=== PATIENT | female | born 1945 | race Two or more races ===

== ENCOUNTER 2019-09-10 21:16 | Inpatient (IN) | payer MEDICARE, OTHER ==
[~2019-09-10] VITALS: Ht 154.9 cm; Wt 70.1 kg
[~2019-09-10 21:16] MED LIST: AMLO10TA7 PO; ASPI-728 PO; CLON0.1T83 PO; FERR-89 PO; FURO40 PO; OMEP20 PO; PHOSLOC PO; SODI650T PO
[2019-09-10 21:42] LABS: GLUCOSE,POINT OF CARE 102 MG/DL (70-110)
[2019-09-10 22:04] LABS: BASOPHILS % (AUTO) 0.5 % (0.0-2.0); EOSINOPHILS % (AUTO) 0.4 % (1.0-6.0); HEMATOCRIT 30.7 % (36-46); HEMOGLOBIN 10.5 g/dL (12.0-16.0); LYMPHOCYTES # (AUTO) 1.1 K/uL (1.0-4.8); LYMPHOCYTES % (AUTO) 10.3 % (22.0-44.0); MEAN CORPUSCULAR HEMOGLOBIN 31.3 pg (26.0-34.0); MEAN CORPUSCULAR HGB CONC 34.2 G/dL (31.0-37.0); MEAN CORPUSCULAR VOLUME 92 fL (80-100); MONOCYTES # (AUTO) 0.7 K/uL (0.1-1.0); MONOCYTES % (AUTO) 6.8 % (2.0-9.0); NEUTROPHILS # (AUTO) 8.6 K/uL (1.8-7.7); PLATELET COUNT (AUTO) 129 K/uL (150-450); RED BLOOD CELL COUNT(AUTO) 3.35 MIL/uL (4.00-5.20); RED CELL DISTRIBUTION WIDTH 14.2 % (11.5-14.5)
[2019-09-10 22:15] LABS: INR 1.1 (0.9-1.1); PROTHROMBIN TIME 10.7 SEC (9.4-11.6)
[2019-09-10] MEDS ORDERED: SODIUM CHLORIDE 0.9% 500 ML IV ONE (22:15)
[2019-09-10 22:19] LABS: CALCIUM, TOTAL 8.7 mg/dL (8.8-10.5); CREATININE 8.34 mg/dL (0.60-1.30); POTASSIUM 5.3 mmol/L (3.5-5.1)
[2019-09-10 22:26] LABS: ALBUMIN 3.2 g/dL (3.4-5.0); BILIRUBIN,TOTAL 0.9 mg/dL (0.1-1.0); TOTAL PROTEIN, SERUM 6.8 g/dL (6.4-8.2)
[2019-09-10] MEDS ORDERED: PIPERACILLIN SODIUM/TAZOBACTAM 2.25 GM in DEXTROSE 5%-WATER 50 ML IV ONE (23:00)
[2019-09-10] MEDS ORDERED: ACETAMINOPHEN 500 MG TABLET ONE (23:12)
[2019-09-10] MEDS ORDERED: CALCIUM GLUCONATE 0.465 MEQ/ML 10 ML VIAL IVP ONE (23:15)
[2019-09-10] MEDS ORDERED: ACETAMINOPHEN 500 MG TABLET PO ONE (23:15)
[2019-09-10] MEDS ORDERED: INSULIN REGULAR, HUMAN 100 UNITS/ML IVP ONE (23:15)
[2019-09-10] MEDS ORDERED: SODIUM BICARBONATE [ADULT] 8.4% 50 MEQ/50 ML SYRINGE IVP ONE (23:15)
[2019-09-10] MEDS ORDERED: DEXTROSE 50%-WATER 25 GM/50 ML SYRINGE IVP ONE (23:15)
[2019-09-10 23:30] LABS: INFLUENZA TYPE A NEGATIVE FOR TYPE A (NEGATIVE); INFLUENZA TYPE B NEGATIVE FOR TYPE B (NEGATIVE)
[2019-09-10] MEDS ORDERED: VANCOMYCIN HCL 1.5 GM in DEXTROSE 5%-WATER 250 ML IV ONE (23:30)
[2019-09-11] MEDS ORDERED: ALBUTEROL SULFATE 2.5 MG/0.5 ML NEB SOLUTION NEB PRN (00:15)
[2019-09-11] MEDS ORDERED: 0.9% SODIUM CHLORIDE 10 ML SYRINGE IVP PRN ×2 (00:15→01:00)
[2019-09-11] MEDS ORDERED: ZOLPIDEM TARTRATE 5 MG TABLET PO PRN (00:15)
[2019-09-11] MEDS ORDERED: ONDANSETRON HCL 4 MG/2 ML VIAL IVP PRN ×2 (00:15→01:00)
[2019-09-11] MEDS ORDERED: DEXTROSE 50%-WATER 25 GM/50 ML SYRINGE IVP PRN (00:15)
[2019-09-11] MEDS ORDERED: IPRATROPIUM BROMIDE 0.5 MG/2.5 ML NEB SOLUTION NEB PRN (00:15)
[2019-09-11] MEDS ORDERED: ACETAMINOPHEN 325 MG TABLET PO PRN (01:00)
[2019-09-11] MEDS ORDERED: PIPERACILLIN SODIUM/TAZOBACTAM 0.75 GM in DEXTROSE 5%-WATER 50 ML IV PRN (03:15)
[2019-09-11] MEDS ORDERED: VANCOMYCIN HCL 1 GM/D5% WATER 200 ML IV PRN (03:15)
[2019-09-11] MEDS ORDERED: 0.9% SODIUM CHLORIDE 5 ML NEB SOLUTION NEB ONE (03:36)
[2019-09-11] MEDS: ALBUTEROL SULFATE 2.5 MG/0.5 ML NEB SOLUTION NEB SCH ×4 (03:50→19:48)
[2019-09-11] MEDS: IPRATROPIUM BROMIDE 0.5 MG/2.5 ML NEB SOLUTION NEB SCH ×4 (03:50→19:47)
[2019-09-11 05:12] VITALS: BP 138/55
[2019-09-11] MEDS: INSULIN LISPRO 100 UNITS/ML SQ PRN ×2 (07:19→21:52)
[2019-09-11 07:26] VITALS: BP 159/88
[2019-09-11 07:40] LABS: GLUCOMETER DEV NAME(LOC) 5S.1; GLUCOSE,POINT OF CARE 89 MG/DL (70-110)
[2019-09-11] MEDS ORDERED: FERROUS SULFATE 325 MG EC TABLET PO SCH (08:00)
[2019-09-11] MEDS: CloNIDine HCL 0.1 MG TABLET PO SCH ×3 (09:00→21:38)
[2019-09-11] MEDS ORDERED: -POST HEMODIALYSIS NOTE- MISC SCH (09:00)
[2019-09-11] MEDS: AmLODIPine BESYLATE 10 MG TABLET PO SCH (09:00)
[2019-09-11] MEDS: PIPERACILLIN SODIUM/TAZOBACTAM 2.25 GM in DEXTROSE 5%-WATER 50 ML IV SCH ×4 (09:26→22:28)
[2019-09-11] MEDS: CALCIUM ACETATE 667 MG CAPSULE PO SCH ×3 (09:27→17:20)
[2019-09-11] MEDS: ASPIRIN 81 MG CHEWABLE TABLET PO SCH (09:28)
[2019-09-11] MEDS: PANTOPRAZOLE SODIUM 40 MG DR TABLET PO SCH (09:28)
[2019-09-11 10:46] VITALS: BP 133/59
[2019-09-11 13:57] LABS: GLUCOMETER DEV NAME(LOC) 5S.1; GLUCOSE,POINT OF CARE 116 MG/DL (70-110)
[2019-09-11 15:00] VITALS: BP 144/64
[2019-09-11] MEDS ORDERED: SODIUM CHLORIDE 0.9% 2,000 ML ONE (17:04)
[2019-09-11 17:51] LABS: GLUCOMETER DEV NAME(LOC) 5S.1; GLUCOSE,POINT OF CARE 100 MG/DL (70-110)
[2019-09-11 20:19] VITALS: BP 155/60
[2019-09-11] MEDS: HEPARIN SODIUM,PORCINE 5,000 UNITS/ML VIAL SQ SCH (21:39)
[2019-09-12 00:04] VITALS: BP 141/73
[2019-09-12] MEDS: IPRATROPIUM BROMIDE 0.5 MG/2.5 ML NEB SOLUTION NEB SCH ×2 (01:30→07:58)
[2019-09-12] MEDS: ALBUTEROL SULFATE 2.5 MG/0.5 ML NEB SOLUTION NEB SCH ×2 (01:30→07:57)
[2019-09-12 04:53] VITALS: BP 138/57
[2019-09-12 06:40] LABS: BASOPHILS % (AUTO) 0.6 % (0.0-2.0); EOSINOPHILS % (AUTO) 2.6 % (1.0-6.0); HEMATOCRIT 27.2 % (36-46); HEMOGLOBIN 9.5 g/dL (12.0-16.0); LYMPHOCYTES # (AUTO) 0.7 K/uL (1.0-4.8); LYMPHOCYTES % (AUTO) 12.5 % (22.0-44.0); MEAN CORPUSCULAR HEMOGLOBIN 31.8 pg (26.0-34.0); MEAN CORPUSCULAR HGB CONC 34.8 G/dL (31.0-37.0); MEAN CORPUSCULAR VOLUME 91 fL (80-100); MONOCYTES # (AUTO) 0.3 K/uL (0.1-1.0); MONOCYTES % (AUTO) 6.4 % (2.0-9.0); NEUTROPHILS # (AUTO) 4.1 K/uL (1.8-7.7); NEUTROPHILS % (AUTO) 77.9 % (40.0-70.0); PLATELET COUNT (AUTO) 128 K/uL (150-450); RED BLOOD CELL COUNT(AUTO) 2.98 MIL/uL (4.00-5.20); RED CELL DISTRIBUTION WIDTH 14.4 % (11.5-14.5)
[2019-09-12 07:14] LABS: CALCIUM, TOTAL 8.7 mg/dL (8.8-10.5); CREATININE 4.7 mg/dL (0.60-1.30); MAGNESIUM 1.9 mg/dL (1.80-2.40); POTASSIUM 4.2 mmol/L (3.5-5.1); VANCOMYCIN,RANDOM 14.6 mcg/mL (25.0-50.0)
[2019-09-12 08:20] LABS: GLUCOMETER DEV NAME(LOC) 5S.1; GLUCOSE,POINT OF CARE 146 MG/DL (70-110)
[2019-09-12 08:21] LABS: GLUCOMETER DEV NAME(LOC) 5S.2A; GLUCOSE,POINT OF CARE 100 MG/DL (70-110)
[2019-09-12] MEDS: PANTOPRAZOLE SODIUM 40 MG DR TABLET PO SCH (08:25)
[2019-09-12] MEDS: CALCIUM ACETATE 667 MG CAPSULE PO SCH (08:25)
[2019-09-12] MEDS: CloNIDine HCL 0.1 MG TABLET PO SCH (08:25)
[2019-09-12] MEDS: AmLODIPine BESYLATE 10 MG TABLET PO SCH (08:25)
[2019-09-12] MEDS: ASPIRIN 81 MG CHEWABLE TABLET PO SCH (08:26)
[2019-09-12] MEDS: HEPARIN SODIUM,PORCINE 5,000 UNITS/ML VIAL SQ SCH (08:27)
[2019-09-12] MEDS: PIPERACILLIN SODIUM/TAZOBACTAM 2.25 GM in DEXTROSE 5%-WATER 50 ML IV SCH (08:31)
[2019-09-12] MEDS ORDERED: CARBOXYMETHYLCELLULOSE SODIUM 0.4 ML OPHTHALMIC SOLUTION [PF] OU PRN (09:30)
[2019-09-12] MEDS ORDERED: ACETAMINOPHEN 325 MG TABLET PO PRN (09:30)
[2019-09-12] MEDS ORDERED: VITAMIN B COMP/VIT C/FOLIC ACID CAPSULE PO SCH (10:30)
[2019-09-12 11:28] VITALS: BP 149/66
[2019-09-12] MEDS: INSULIN LISPRO 100 UNITS/ML SQ PRN (12:33)
[2019-09-12 12:37] LABS: GLUCOMETER DEV NAME(LOC) 5S.2A; GLUCOSE,POINT OF CARE 170 MG/DL (70-110)
[2019-09-12] MEDS ORDERED: VANCOMYCIN HCL 750 MG in DEXTROSE 5%-WATER 250 ML IV ONE (13:00)
[2019-09-12] MEDS ORDERED: LEVO250T75 PO (13:26)
[2019-09-12 16:06] LABS: APPEARANCE,URINE CLOUDY (CLEAR); BILIRUBIN,URINE NEGATIVE (NEGATIVE); GLUCOSE, URINE (UA) 100 mg/dL (NEGATIVE); KETONES,URINE NEGATIVE (NEGATIVE); LEUKOCYTE ESTERASE ,URINE NEGATIVE (NEGATIVE); NITRATE,URINE NEGATIVE (NEGATIVE); OCCULT BLOOD,URINE SMALL (NEGATIVE); PROTEIN,URINE SEE CONFIRM (NEGATIVE); UROBILINOGEN,URINE 0.2 mg/dL (<=1.0)
[2019-09-12 16:12] LABS: SULFOSALICYLIC ACID,URINE 4+ (Negative)
[2019-09-12 16:13] LABS: RBC,URINE 0-2 /HPF (0-2); SQUAMOUS EPITHELIAL CELL,UR Many /LPF (None Seen); WBC,URINE 0-2 /HPF (0-5)
[2019-09-12 16:14] LABS: BACTERIA,URINE Moderate /HPF (None Seen)
[2019-09-13] MEDS ORDERED: EPOETIN ALFA 10,000 UNITS/ML 2 ML VIAL SQ SCH (09:00)
== END 2019-09-12 14:15 | disposition home or self-care (01) | DRG 871 ==
LOC: EMS 21:17 → 5S 09-11 01:32
PROVIDERS: ADMIT Internal Medicine; ATTEND Internal Medicine
PROC: 5A1D70Z Performance of Urinary Filtration, Intermittent, Less than 6 Hours Per Day (ICD-10-PCS; principal; 2019-09-11)
DX: A41.9 Sepsis, unspecified organism (principal); J18.9 Pneumonia, unspecified organism; N18.6 End stage renal disease; I13.2 Hypertensive heart and chronic kidney disease with heart failure and with stage 5 chronic kidney disease, or end stage renal disease; I50.9 Heart failure, unspecified; Z99.2 Dependence on renal dialysis; E11.22 Type 2 diabetes mellitus with diabetic chronic kidney disease; E11.40 Type 2 diabetes mellitus with diabetic neuropathy, unspecified; E11.21 Type 2 diabetes mellitus with diabetic nephropathy; E78.5 Hyperlipidemia, unspecified; D63.1 Anemia in chronic kidney disease; E87.5 Hyperkalemia; I25.10 Atherosclerotic heart disease of native coronary artery without angina pectoris; G25.81 Restless legs syndrome; Z99.81 Dependence on supplemental oxygen
CPT/HCPCS: 83605; 83735; 87040; 87081; 87086; 87340; 87804; 93005; 94640; 96365; 97116; 97162; 97530; 99291; J0610; J1644; J1815; J2543; J3370; J3490; J7030; J7040; J7060

== ENCOUNTER 2021-09-23 10:34 | Inpatient (IN) | payer MEDICARE, OTHER ==
[~2021-09-23] VITALS: Ht 149.9 cm; Wt 57.2 kg
[~2021-09-23 10:34] MED LIST changes: +AMLO-258 PO; -AMLO10TA7 PO; +ASPI-1450 PO; -ASPI-728 PO; +CLON0.1T2 PO; -CLON0.1T83 PO; -FERR-89 PO; -FURO40 PO; +LEVO250T75 PO; -OMEP20 PO; -SODI650T PO
[2021-09-23 11:29] LABS: BASOPHILS % (AUTO) 0.8 % (0.0-2.0); EOSINOPHILS % (AUTO) 3.3 % (1.0-6.0); HEMATOCRIT 30.6 % (36-46); HEMOGLOBIN 10.2 g/dL (12.0-16.0); LYMPHOCYTES # (AUTO) 0.6 K/uL (1.0-4.8); LYMPHOCYTES % (AUTO) 14.7 % (22.0-44.0); MEAN CORPUSCULAR HEMOGLOBIN 31.3 pg (26.0-34.0); MEAN CORPUSCULAR HGB CONC 33.4 G/dL (31.0-37.0); MEAN CORPUSCULAR VOLUME 94 fL (80-100); MONOCYTES # (AUTO) 0.4 K/uL (0.1-1.0); MONOCYTES % (AUTO) 9.9 % (2.0-9.0); NEUTROPHILS % (AUTO) 71.3 % (40.0-70.0); PLATELET COUNT (AUTO) 100 K/uL (150-450); RED BLOOD CELL COUNT(AUTO) 3.26 MIL/uL (4.00-5.20)
[2021-09-23 11:39] LABS: CALCIUM, TOTAL 8.7 mg/dL (8.8-10.5); CREATININE 4.45 mg/dL (0.60-1.30)
[2021-09-23 11:48] LABS: BILIRUBIN,TOTAL 0.4 mg/dL (0.1-1.0); TOTAL PROTEIN, SERUM 6.2 g/dL (6.4-8.2)
[2021-09-23] MEDS ORDERED: ONDANSETRON HCL 4 MG/2 ML VIAL IVP PRN (13:45)
[2021-09-23] MEDS ORDERED: DEXTROSE 50%-WATER 25 GM/50 ML SYRINGE IVP PRN (14:15)
[2021-09-23] MEDS ORDERED: SEVE800T7 PO (14:25)
[2021-09-23] MEDS ORDERED: AMLO10TA55 PO (14:25)
[2021-09-23] MEDS ORDERED: LEVO25TA9 PO (14:25)
[2021-09-23] MEDS ORDERED: FOLI0.8T22 PO (14:25)
[2021-09-23] MEDS ORDERED: GABA800T PO (14:25)
[2021-09-23] MEDS ORDERED: ASPI81TA87 PO (14:25)
[2021-09-23] MEDS ORDERED: VITA400T9 PO (14:25)
[2021-09-23] MEDS ORDERED: CARV12.530 PO (14:25)
[2021-09-23] MEDS ORDERED: LISI-662 PO (14:25)
[2021-09-23] MEDS ORDERED: HYDR50TA36 PO (14:25)
[2021-09-23] MEDS: AmLODIPine BESYLATE 10 MG TABLET PO SCH (14:26)
[2021-09-23 15:04] LABS: COVID AG,FIA SOURCE NASAL SWAB
[2021-09-23 16:09] VITALS: BP 167/66
[2021-09-23] MEDS: ACETAMINOPHEN 325 MG TABLET PO PRN (18:46)
[2021-09-23] MEDS: INSULIN LISPRO 100 UNITS/ML SQ PRN ×2 (18:47→21:12)
[2021-09-23 18:56] LABS: GLUCOMETER DEV NAME(LOC) 5S.1B; GLUCOSE,POINT OF CARE 178 MG/DL (70-110)
[2021-09-23 20:33] VITALS: BP 123/50
[2021-09-23 20:51] LABS: GLUCOMETER DEV NAME(LOC) 5S.1B; GLUCOSE,POINT OF CARE 166 MG/DL (70-110)
[2021-09-23] MEDS: HEPARIN SODIUM,PORCINE 5,000 UNITS/ML VIAL SQ SCH (21:11)
[2021-09-23] MEDS: DOCUSATE SODIUM 100 MG CAPSULE PO SCH (21:11)
[2021-09-23 23:39] VITALS: BP 149/61
[2021-09-24] VITALS (14 sets, daily range): BP systolic 127–192; BP diastolic 55–83
[2021-09-24] MEDS: ACETAMINOPHEN 325 MG TABLET PO PRN (03:50)
[2021-09-24 06:36] LABS: GLUCOMETER DEV NAME(LOC) 5N.3; GLUCOSE,POINT OF CARE 88 MG/DL (70-110)
[2021-09-24] MEDS: INSULIN LISPRO 100 UNITS/ML SQ PRN (06:44)
[2021-09-24] MEDS: HEPARIN SODIUM,PORCINE 5,000 UNITS/ML VIAL SQ SCH ×2 (09:00→20:25)
[2021-09-24] MEDS: FAMOTIDINE 20 MG TABLET PO SCH (09:00)
[2021-09-24] MEDS: DOCUSATE SODIUM 100 MG CAPSULE PO SCH ×2 (09:00→20:25)
[2021-09-24] MEDS: ASPIRIN 81 MG CHEWABLE TABLET PO SCH (09:21)
[2021-09-24] MEDS: AmLODIPine BESYLATE 10 MG TABLET PO SCH (09:29)
[2021-09-24] MEDS ORDERED: HYDROCODONE/ACETAMINOPHEN 5-325 MG TABLET PO PRN (09:30)
[2021-09-24] MEDS: LOSARTAN POTASSIUM 25 MG TABLET PO SCH ×2 (09:52→20:25)
[2021-09-24 12:56] LABS: GLUCOMETER DEV NAME(LOC) 5N.1C; GLUCOSE,POINT OF CARE 84 MG/DL (70-110)
[2021-09-24] MEDS ORDERED: SODIUM CHLORIDE 0.9% 1,000 ML ONE (13:08)
[2021-09-24 18:26] LABS: GLUCOMETER DEV NAME(LOC) 5N.1C; GLUCOSE,POINT OF CARE 77 MG/DL (70-110)
[2021-09-24 21:06] LABS: GLUCOMETER DEV NAME(LOC) 5N.1C; GLUCOSE,POINT OF CARE 128 MG/DL (70-110)
[2021-09-24] MEDS ORDERED: DiphenhydrAMINE HCL 50 MG/ML VIAL IVP ONE (22:45)
[2021-09-25] MEDS: ACETAMINOPHEN 325 MG TABLET PO PRN (02:49)
[2021-09-25 06:16] LABS: GLUCOMETER DEV NAME(LOC) 5N.1C; GLUCOSE,POINT OF CARE 82 MG/DL (70-110)
[2021-09-25 07:20] VITALS: BP 207/72
[2021-09-25 07:51] LABS: BASOPHILS % (AUTO) 1.3 % (0.0-2.0); EOSINOPHILS % (AUTO) 3.3 % (1.0-6.0); LYMPHOCYTES # (AUTO) 0.7 K/uL (1.0-4.8); LYMPHOCYTES % (AUTO) 11.8 % (22.0-44.0); MEAN CORPUSCULAR HEMOGLOBIN 31.8 pg (26.0-34.0); MEAN CORPUSCULAR HGB CONC 34.4 G/dL (31.0-37.0); MEAN CORPUSCULAR VOLUME 93 fL (80-100); MONOCYTES # (AUTO) 0.6 K/uL (0.1-1.0); MONOCYTES % (AUTO) 11.3 % (2.0-9.0); NEUTROPHILS % (AUTO) 72.3 % (40.0-70.0); PLATELET COUNT (AUTO) 130 K/uL (150-450); RED BLOOD CELL COUNT(AUTO) 3.46 MIL/uL (4.00-5.20); RED CELL DISTRIBUTION WIDTH 13.8 % (11.5-14.5)
[2021-09-25 08:00] LABS: CALCIUM, TOTAL 8.8 mg/dL (8.8-10.5); CREATININE 4.1 mg/dL (0.60-1.30); POTASSIUM 3.6 mmol/L (3.5-5.1)
[2021-09-25] MEDS: FAMOTIDINE 20 MG TABLET PO SCH (08:44)
[2021-09-25] MEDS: ASPIRIN 81 MG CHEWABLE TABLET PO SCH (08:44)
[2021-09-25] MEDS: DOCUSATE SODIUM 100 MG CAPSULE PO SCH (08:44)
[2021-09-25] MEDS: LOSARTAN POTASSIUM 25 MG TABLET PO SCH (08:45)
[2021-09-25] MEDS: AmLODIPine BESYLATE 10 MG TABLET PO SCH (08:45)
[2021-09-25] MEDS: HEPARIN SODIUM,PORCINE 5,000 UNITS/ML VIAL SQ SCH (08:47)
[2021-09-25 11:06] VITALS: BP 190/67
[2021-09-25 16:16] LABS: GLUCOMETER DEV NAME(LOC) 5N.1C; GLUCOSE,POINT OF CARE 98 MG/DL (70-110)
[2021-09-26] MEDS ORDERED: EPOETIN ALFA 10,000 UNITS/ML 2 ML VIAL SQ SCH (09:00)
== END 2021-09-25 12:00 | disposition home or self-care (01) | DRG 308 ==
LOC: EMS 10:41 → 5S 13:40
PROVIDERS: ADMIT Internal Medicine; ATTEND Internal Medicine
PROC: 0PSHXZZ Reposition Right Radius, External Approach (ICD-10-PCS; principal; 2021-09-23)
PROC: 0PSKXZZ Reposition Right Ulna, External Approach (ICD-10-PCS; 2021-09-23)
DX: R00.1 Bradycardia, unspecified (principal); N18.6 End stage renal disease; S52.501A Unspecified fracture of the lower end of right radius, initial encounter for closed fracture; I12.0 Hypertensive chronic kidney disease with stage 5 chronic kidney disease or end stage renal disease; E44.0 Moderate protein-calorie malnutrition; S52.611A Displaced fracture of right ulna styloid process, initial encounter for closed fracture; T46.5X5A Adverse effect of other antihypertensive drugs, initial encounter; E11.22 Type 2 diabetes mellitus with diabetic chronic kidney disease; S20.229A Contusion of unspecified back wall of thorax, initial encounter; S20.219A Contusion of unspecified front wall of thorax, initial encounter; D63.1 Anemia in chronic kidney disease; Z20.822 Contact with and (suspected) exposure to COVID-19; I25.10 Atherosclerotic heart disease of native coronary artery without angina pectoris; E78.5 Hyperlipidemia, unspecified; W18.39XA Other fall on same level, initial encounter; Z99.2 Dependence on renal dialysis; Z68.25 Body mass index [BMI] 25.0-25.9, adult; Y93.89 Activity, other specified; Y92.89 Other specified places as the place of occurrence of the external cause; Y99.8 Other external cause status
CPT/HCPCS: 70450; 71101; 72070; 72125; 80048; 80053; 82962; 84484; 85025; 87081; 87340; 90935; 93005; 93306; 97116; 97162; 97165; 97530; 97535; 99285; J1200; J1644; J7030